=== PATIENT | female | born 1995 | race Caucasian/White ===

== ENCOUNTER 2018-09-24 22:11 | Emergency (ER) | payer BC ==
[~2018-09-24] VITALS: Ht 160 cm; Wt 52.0 kg
[2018-09-24 22:16] VITALS: Ht 160 cm; Wt 52.0 kg
[2018-09-25] MEDS ORDERED: LIDOCAINE 2%/EPI MPF (SDV) 20 ML VIAL INJ STA (01:04)
[2018-09-25] MEDS ORDERED: DIPHTH/TET/ACEL PERTUSS (ADULT) 0.5 ML VIAL IM* ONE (01:30)
[2018-09-25] MEDS ORDERED: SULF1TAB31 PO (01:55)
--- NOTE | 2018-09-25 02:13 | ERD ---
ER Documentation Chief Complaint Chief Complaint bartholin's cyst on L side sent by PMD HPI This is a 23-year-old female who is referred here by her primary care provider for a Bartholin cyst on the left side. Patient states she has noticed increasing redness, swelling and pain to her left vaginal area times 2 days. She denies any drainage. Denies any fevers or chills. States pain is worse with movement. Denies any abdominal pain or constipation. No urinary symptoms. ROS All systems reviewed and are negative except as per history of present illness. Medications Home Meds Active Scripts Sulfamethoxazole/Trimethoprim* (Bactrim Ds* Tablet) 1 Each Tablet, 1 TAB PO BID, #14 TAB Prov:JUAN EVANS PA-C 09/25/18 Allergies Allergies: Coded Allergies: No Known Allergy (Unverified , 09/24/18) PMhx/Soc Medical and Surgical Hx: pt denies Medical Hx, pt denies Surgical Hx Hx Alcohol Use: No Hx Substance Use: No Hx Tobacco Use: No Physical Exam Vitals Vital Signs Date Temp Pulse Resp B/P (MAP) Pulse Ox O2 O2 Flow FiO2 Time Delivery Rate 09/24/18 99.6 83 20 120/58 100 22:16 (78) Physical Exam Const: No acute distress Head: Atraumatic Eyes: Normal Conjunctiva ENT: Normal External Ears, Nose and Mouth. Neck: Full range of motion. No meningismus. Resp: Clear to auscultation bilaterally Cardio: Regular rate and rhythm, no murmurs Abd: Soft, non tender, non distended. Normal bowel sounds Pelvic Exam: Safety Admin Assistant present Abdomen: Nontender External Genitalia: + Erythema and edema along the left labia majora. Tenderness to palpation.. Induration noted. No fluctuance. Skin: No petechiae or rashes Back: No midline or flank tenderness Ext: No cyanosis, or edema Neur: Awake and alert Psych: Normal Mood and Affect Results 24 hrs Current Medications Medications Dose Sig/Curt Start Time Status Last (Trade) Ordered Route PRN Stop Time Admin Dose Reason Admin Diphtheria/ 0.5 ml ONCE ONCE 09/25/18 DC Tetanus/Acell IM* 01:30 Pertussis 09/25/18 01:31 (Adacel) Lidocaine/ 20 ml ONCE STAT 09/25/18 DC Epinephrine INJ 01:04 (Xylocaine 09/25/18 01:06 2%/ Epi Mpf(Sdv)) Procedures/[facility] LABS & DIAGNOSTIC IMAGING: [None] PROCEDURES: Abscess Incision and Drainage with irrigation by me: Location: Left labia majora Anesthesia: Local 1% Lidocaine Technique: Small incision with 11 blade scalpel. Complications: Neurovascularly intact post procedure MEDICAL DECISION MAKING: This is a 23-year-old female who was referred here for Bartholin cyst of her left labia majora. Patient has no appreciable fluctuance on physical exam. Incision and drainage was attempted without any expression of purulent material. We will treat prophylactically with oral antibiotics. Also recommended Epsom salt baths for 10 minutes at least 3 times a day. Patient does not have any signs or symptoms concerning for cellulitis, sepsis, or any other deep space tissue infection. She was told to follow-up with her regular doctor in 1-2 days, otherwise return here for any new or worsening symptoms. PRESCRIPTIONS: Bactrim SPECIALIST FOLLOW UP RECOMMENDED: None Patient has been advised to follow up with primary care in 1-2 days. Departure Diagnosis: Primary Impression: Bartholin gland cyst Condition: Stable Patient Instructions: Bartholin's Cyst (I And D) Additional Instructions: Please take the antibiotic for the next 7 days. Take a bath in EPSOM salt for 10 minutes about 2 times a day to help drain out any infection. See your primary care doctor in 1 week. Return here for any new or worsening symptoms. JUAN EVANS PA-C Sep 25, 2018 02:13
[2018-09-25 02:15] VITALS: BP 109/53; PULSE 70; RESP 18
== END 2018-09-25 02:17 | disposition home or self-care (01) ==
LOC: FTE 22:11
DX: N75.0 Cyst of Bartholin's gland (principal); Z23 Encounter for immunization
CPT/HCPCS: 56420; 90471; 90715; Z7502; Z7610